=== PATIENT | female | born 1995 | race Two or more races ===

== ENCOUNTER 2024-02-06 04:52 | Inpatient (IN) | payer OTHER ==
[~2024-02-06] VITALS: Ht 165.1 cm; Wt 725.7 kg
[2024-02-06] VITALS (10 sets, daily range): BP systolic 109–127; BP diastolic 58–80
[~2024-02-06 04:52] MED LIST: AMOX1TAB12 PO; PRENATAL + DHA1 EAC1
[2024-02-06 06:27] LABS: HEMATOCRIT 39.2 % (36.0-45.00); HEMOGLOBIN 13.7 g/dL (12.0-15.00); MEAN CELL VOLUME 90.6 fL (80.00-100.00); MEAN CORPUSCULAR HEMOGLOBIN 31.7 pg (27.00-32.0); MEAN CORPUSCULAR HGB CONC 34.9 g/dl (32.0-36.0); PLATELET COUNT 192 K/uL (150-450); RED BLOOD COUNT 4.33 M/uL (4.00-6.00); RED CELL DISTRIBUTION WIDTH 16.1 % (11.5-14.5)
[2024-02-06] MEDS ORDERED: RINGERS SOLUTION,LACTATED 1,000 ML IV SCH (06:30)
[2024-02-06 06:32] LABS: URINE APPEARANCE Cloudy; URINE BILIRRUBIN Negative (NEGATIVE); URINE BLOOD Negative; URINE COLOR Yellow; URINE GLUCOSE Negative (NEGATIVE); URINE KETONE Negative (NEGATIVE); URINE LEUKOCYTE Large; URINE NITRATE Negative; URINE PROTEIN 30 (NEGATIVE)
[2024-02-06 06:36] LABS: URINE CAST 4.42 uL (0.0-1.40); URINE RBC 24.8 uL (0.0-20.8); URINE WBC 318.3 uL (0.0-23.2)
[2024-02-06 06:45] LABS: INR 0.95; PARTIAL THROMBOPLASTIN TIME 28.9 SECONDS (22.0-34.0); PROTHROMBIN TIME 10.4 SECONDS (9.0-11.5)
[2024-02-06 06:50] LABS: ALBUMIN 2.9 gm/dL (3.4-5.0); BILIRUBIN TOTAL 0.38 mg/dL (0.3-1.2); CALCIUM 9.1 mg/dL (8.5-10.1); CREATININE SERUM 0.61 mg/dL (0.55-1.02); GFR 115.16; GLOBULINA 3.1 G/DL (2.4-3.5); POTASSIUM 3.94 mEq/L (3.5-5.1)
[2024-02-06 07:15] LABS: URINE BACTERIA > 9821.5 uL (0.0-1933)
[2024-02-06] MEDS ORDERED: MISOPROSTOL 50 MCG TABLET VAG NR (08:00)
[2024-02-06] MEDS ORDERED: OXYTOCIN 500 ML IV SCH (12:00)
[2024-02-06] MEDS ORDERED: MEPERIDINE HCL/PF 50 MG/ML VIAL IV ONE ×2 (14:15→16:30)
[2024-02-06] MEDS ORDERED: PROMETHAZINE HCL 25 MG/ML AMPUL IV ONE ×2 (14:15→16:30)
[2024-02-06] MEDS ORDERED: MEPERIDINE HCL/PF 25 MG/ML VIAL IV ONE (16:30)
[2024-02-06] MEDS ORDERED: IBUprofen 600 MG TABLET PO SCH (20:00)
[2024-02-06] MEDS ORDERED: OXYTOCIN 20 UNITS/1000ML RL PIGGYBAG IV SCH (22:00)
[2024-02-06] MEDS ORDERED: LIDOCAINE HCL 1% 10ML VIAL IJ ONE (22:00)
[2024-02-06] MEDS ORDERED: ERYTHROMYCIN BASE OPHT 1GM EACH TUBE OP ONE (22:00)
[2024-02-06] MEDS ORDERED: CHLORHEXIDINE GLUCONATE 120 ML BOTTLE TOP ONE (22:00)
[2024-02-07] VITALS: BP 109/67
[2024-02-07 04:00] VITALS: BP 103/65
[2024-02-07] MEDS ORDERED: IBUprofen 600 MG TABLET PO SCH (08:00)
[2024-02-07 08:53] VITALS: BP 102/59
[2024-02-07 09:33] LABS: HEMATOCRIT 33.5 % (36.0-45.00); HEMOGLOBIN 11.5 g/dL (12.0-15.00); MEAN CELL VOLUME 90.5 fL (80.00-100.00); MEAN CORPUSCULAR HGB CONC 34.2 g/dl (32.0-36.0); PLATELET COUNT 162 K/uL (150-450)
[2024-02-07 12:40] VITALS: BP 123/74
[2024-02-07 12:43] VITALS: BP 104/68
[2024-02-07 16:00] VITALS: BP 124/80
[2024-02-08 02:07] VITALS: BP 119/73
[2024-02-08 09:03] VITALS: BP 137/69
[2024-02-08] MEDS ORDERED: DOCUSATE CALCIUM 240 MG CAPSULE PO NR (10:08)
[2024-02-08 16:00] VITALS: BP 112/71
[2024-02-08] MEDS ORDERED: DOCUSATE CALCIUM 240 MG CAPSULE PO SCH (17:00)
[2024-02-09 02:52] VITALS: BP 100/63
[2024-02-09] MEDS ORDERED: SURFAK240 M1 PO (08:15)
[2024-02-09] MEDS ORDERED: IBU600 MG PO (08:17)
[2024-02-09 09:07] VITALS: BP 134/76
[2024-02-09 17:16] VITALS: BP 130/80
== END 2024-02-09 18:00 | disposition home or self-care (01) | DRG 807 ==
LOC: LDR 04:52 → OB/GYN 04:52
PROVIDERS: Obstetrics & Gynecology; ADMIT Specialist; ATTEND Specialist
PROC: 0W8NXZZ Division of Female Perineum, External Approach (ICD-10-PCS; 2024-02-06)
PROC: 4A1HXCZ Monitoring of Products of Conception, Cardiac Rate, External Approach (ICD-10-PCS; 2024-02-06)
PROC: 10E0XZZ Delivery of Products of Conception, External Approach (ICD-10-PCS; principal; 2024-02-07)
DX: O80 Encounter for full-term uncomplicated delivery (principal); Z37.0 Single live birth; Z3A.39 39 weeks gestation of pregnancy; Z20.822 Contact with and (suspected) exposure to COVID-19

== ENCOUNTER 2025-01-06 16:20 | Emergency (ER) | payer OTHER ==
[~2025-01-06] VITALS: Ht 165.1 cm; Wt 68.0 kg
[~2025-01-06 16:20] MED LIST changes: +IBU600 MG PO; +SURFAK240 M1 PO
[2025-01-06] MEDS ORDERED: FAMOTIDINE/PF 20 MG/2 ML VIAL IV STA (17:48)
[2025-01-06] MEDS ORDERED: ONDANSETRON HCL 2 MG/ML VIAL IV STA (17:48)
[2025-01-06] MEDS ORDERED: 0.9 % SODIUM CHLORIDE 1,000 ML IV STA (17:50)
[2025-01-06 18:18] LABS: BASO % 0.2 % (0.1-1.2); EOS # 0.02 (0.04-0.54); EOS % 0.1 % (0.7-7.0); LYMPH # 1.21 (1.18-3.74); LYMPH % 8.8 % (19.3-53.1); MEAN PLATELET VOLUME 10.00 fl (9.4-12.4); MONO # 0.45 (0.24-0.82); MONO % 3.3 % (4.7-12.5); NEUT # 12.03 (1.56-6.13); NEUT % 87.2 % (34.0-71.1); RED CELL DISTRIBUTION WIDTH 12.8 % (11.6-14.4)
[2025-01-06 19:21] LABS: BUN CREA RATIO 13.0 (7.0-25.0); CREATININE SERUM 1.04 mg/dL (0.55-1.02); GFR 61.81; GLUCOSE FASTING 124.0 mg/dL (65-100); OSMOLALITY SERUM 285.0 MOSM/KG (275-295)
[2025-01-06 21:26] LABS: URINE APPEARANCE Clear; URINE BILIRRUBIN Negative (NEGATIVE); URINE BLOOD Large; URINE COLOR Yellow; URINE GLUCOSE Negative (NEGATIVE); URINE KETONE Trace (NEGATIVE); URINE LEUKOCYTE Negative; URINE NITRATE Negative; URINE PROTEIN Trace (NEGATIVE); URINE UROBILINOGEN 0.2 E.U./dl
[2025-01-06 21:30] LABS: URINE BACTERIA 136.7 uL (0.0-1933); URINE CAST 1.61 uL (0.0-1.40); URINE EPITHELIAL CELLS 25.9 uL (0.0-38.8); URINE RBC 159.1 uL (0.0-20.8); URINE WBC 17.8 uL (0.0-23.2)
== END 2025-01-06 22:34 | disposition home or self-care (01) ==
LOC: ER 17:05
PROVIDERS: General Practice
DX: R10.2 Pelvic and perineal pain (principal); N83.209 Unspecified ovarian cyst, unspecified side